=== PATIENT | female | born 1955 | race Caucasian/White ===

== ENCOUNTER 2020-08-26 14:07 | Emergency (ER) | payer BC, OTHER | END 2020-08-26 14:19 | disposition home or self-care (01) | LOC: JVIRT 14:07 | DX: Z11.59 Encounter for screening for other viral diseases (principal) | CPT/HCPCS: C9803; Q3014-GT; U0003 ==

== ENCOUNTER 2020-09-30 14:46 | Emergency (ER) | payer OTHER, BC | END 2020-09-30 18:34 | disposition home or self-care (01) | LOC: JVIRT 14:46 | DX: R07.0 Pain in throat (principal); Z20.828 Contact with and (suspected) exposure to other viral communicable diseases | CPT/HCPCS: C9803; G2012-GT; U0003 ==